=== PATIENT | female | born 1950 | race Caucasian/White ===

== ENCOUNTER 2017-03-02 11:03 | Outpatient (CLI) | payer MEDICARE, MEDICAID | END 2017-03-02 11:04 | disposition home or self-care (01) | DX: G47.33 Obstructive sleep apnea (adult) (pediatric) (principal) | CPT/HCPCS: 99214; G0463 ==

== ENCOUNTER 2017-03-26 08:00 | Outpatient (CLI) | payer MEDICARE, MEDICAID | END 2017-03-26 08:01 | disposition home or self-care (01) | DX: F43.10 Post-traumatic stress disorder, unspecified (principal); F41.9 Anxiety disorder, unspecified; I10 Essential (primary) hypertension; E78.5 Hyperlipidemia, unspecified; R73.01 Impaired fasting glucose ==

== ENCOUNTER 2017-04-28 10:45 | Outpatient (CLI) | payer MEDICARE, MEDICAID | END 2017-04-28 10:46 | disposition home or self-care (01) | LOC: SC 10:45 | PROVIDERS: ATTEND Nurse Practitioner Family | DX: G47.33 Obstructive sleep apnea (adult) (pediatric) (principal) | CPT/HCPCS: 99214; G0463; 99212 ==

== ENCOUNTER 2017-06-08 10:50 | Outpatient (CLI) | payer MEDICARE, MEDICAID | END 2017-06-08 10:51 | disposition home or self-care (01) | LOC: SC 10:50 | PROVIDERS: ATTEND Nurse Practitioner Family | DX: G47.33 Obstructive sleep apnea (adult) (pediatric) (principal) | CPT/HCPCS: 99214; G0463; 99212 ==

== ENCOUNTER 2017-08-30 13:42 | Outpatient (CLI) | payer MEDICARE, MEDICAID | END 2017-08-30 13:43 | disposition home or self-care (01) | LOC: SC 13:42 | PROVIDERS: ATTEND Nurse Practitioner Family | DX: G47.33 Obstructive sleep apnea (adult) (pediatric) (principal) | CPT/HCPCS: 99214; G0463; 99212 ==

== ENCOUNTER 2017-12-20 13:26 | Outpatient (CLI) | payer MEDICARE, MEDICAID | END 2017-12-20 13:27 | disposition home or self-care (01) | LOC: SC 13:26 | PROVIDERS: ATTEND Nurse Practitioner Family | DX: G47.33 Obstructive sleep apnea (adult) (pediatric) (principal) | CPT/HCPCS: 99214; G0463; 99212 ==

== ENCOUNTER 2018-02-15 13:04 | Outpatient (CLI) | payer MEDICARE, MEDICAID | END 2018-02-15 13:05 | disposition home or self-care (01) | LOC: SC 13:04 | PROVIDERS: ATTEND Nurse Practitioner Family | DX: G47.33 Obstructive sleep apnea (adult) (pediatric) (principal); G47.23 Circadian rhythm sleep disorder, irregular sleep wake type | CPT/HCPCS: 99214; G0463; 99212 ==

== ENCOUNTER 2018-03-18 19:06 | Emergency (ER) | payer MEDICARE, MEDICAID ==
--- NOTE | 2018-03-18 20:15 | ED Physician Documentation ---
PD HPI UPPER EXT INJURY - Stated complaint Stated Complaint: THUMB LAC - Chief complaint Chief Complaint: Ext Problem - History obtained from History obtained from: Patient - History of Present Illness Location: Left, Finger (thumb) Type of injury: Laceration (she dropped a kitchen knife and tried to catch it, with lac to thumb ensuing.) Timing - details: Abrupt onset Worsened by: Palpating Associated symptoms: No: Weakness, Numbness Contributing factors: No: Anticoagulated Similar symptoms before: Has not had sx before Recently seen: Not recently seen Review of Systems Neurologic: denies: Focal weakness, Numbness, Near syncope PD PAST MEDICAL HISTORY - Past Medical History Past Medical History: Yes Cardiovascular: Hypertension, High cholesterol - Past Surgical History Past Surgical History: Yes Ortho: Shoulder arthroplasty /[employer]: section - Present Medications Home Medications: Ambulatory Orders Medication Instructions Recorded Confirmed Ascorbic Acid [Vitamin C] 1 tab PO DAILY 03/18/18 03/18/18 Atorvastatin [Lipitor] 2 tab PO DAILY 03/18/18 03/18/18 Cholecalciferol [Vitamin D3] 1 tab PO DAILY 03/18/18 03/18/18 DULoxetine [Cymbalta] 1 tab PO DAILY 03/18/18 03/18/18 Gabapentin [Gralise] 0.5 tab PO BID 03/18/18 03/18/18 Magnesium Oxide [Magnesium] 1 tab PO DAILY 03/18/18 03/18/18 Metoprolol Succinate/Hctz 1 tab PO BID 03/18/18 03/18/18 [Metoprolol ER-Hctz 50-12.5 mg] Potassium Gluconate 1 tab PO DAILY 03/18/18 03/18/18 Vitamin A 1 tab PO DAILY 03/18/18 03/18/18 traZODone [Desyrel] 1 - 2 tab PO DAILY 03/18/18 03/18/18 - Allergies Allergies/Adverse Reactions: Allergies Allergy/AdvReac Type Severity Reaction Status Date / Time aspirin Allergy Unknown Verified 03/18/18 19:24 - Social History Does the pt smoke?: Yes Smoking Status: Current every day smoker - Immunizations Immunizations are current?: No Immunizations: TDAP >10years/unknown PD ED PE NORMAL - Vitals Vital signs reviewed: Yes - General General: Alert and oriented X 3, No acute distress, Well developed/nourished - Derm Derm: Normal color, Warm and dry - Extremities Extremities: Other (left thumb with flap lac that just catches side adge of nailbed, but not the growth area. Flap goes to fatty layer. It is at ulnar side distal phalanx on side. 1.5 cm without FB. ) Results - Vitals Vitals: Oxygen O2 Source Room air Procedures - Laceration (location) left thumb Length in cm: 1.5 (Done by DIRECTOR OF PARKS AND RECREATION student with direct supervision) Wound type: Flap, Into subcut fat, Clean Neurovascular status: Sensory intact, Motor intact Tendon involvement: Tendon intact Anesthesia: Lidocaine 1% Skin layer closure: Nylon, Interrupted, Size #-0 - enter number (4), Sutures - enter # (8) Other: Patient tolerated well, No complications, Neurovascular intact, Dressing applied, Tetanus UTD Complexity: Simple PD MEDICAL DECISION MAKING - ED course Complexity details: considered differential, d/w patient Departure - Departure Disposition: 01 Home, Self Care Clinical Impression: Laceration of left thumb Qualifiers: Encounter type: initial encounter Damage to nail status: with damage Foreign body presence: without foreign body Qualified Code(s): S61.112A - Laceration without foreign body of left thumb with damage to nail, initial encounter Condition: Stable Record reviewed to determine appropriate education?: Yes Instructions: ED Laceration Hand Follow-Up: Keturah Hebert ARNP [Primary Care Provider] - Comments: It is okay to wash and shower. Clean off the wound twice a day with soap and water, or peroxide and water. Apply some antibiotic ointment to it to keep it moist. Also to watch for signs of infection such as purulence, redness or increasing pain. Return to your primary care or the ER at the specified time for suture removal. Suture removal 8-10 days. Tylenol or ibuprofen if needed for pains. Discharge Date/Time: 03/18/18 21:22
[2018-03-18] MEDS ORDERED: LIDOCAINE 2% 10 ML MDV SUBQ STA (20:24)
[2018-03-18 20:33] VITALS: BP 104/55
== END 2018-03-18 21:22 | disposition home or self-care (01) ==
LOC: ED 19:06
DX: S61.012A Laceration without foreign body of left thumb without damage to nail, initial encounter (principal); W26.0XXA Contact with knife, initial encounter; I10 Essential (primary) hypertension; E78.00 Pure hypercholesterolemia, unspecified; F17.200 Nicotine dependence, unspecified, uncomplicated
CPT/HCPCS: 12001; 99282; 99283

== ENCOUNTER 2018-04-15 13:01 | Outpatient (CLI) | payer MEDICARE, MEDICAID ==
[2018-04-15 17:02] LABS: BASOPHILS # (AUTO) 0.1 10^3/uL (0.0-0.1); BASOPHILS % (AUTO) 1.1 %; EOSINOPHILS # (AUTO) 0.1 10^3/uL (0.0-0.7); EOSINOPHILS % (AUTO) 1.5 %; HGB - HEMOGLOBIN 14.2 g/dL (12.0-16.0); LYMPHOCYTES # (AUTO) 1.4 10^3/uL (1.5-3.5); LYMPHOCYTES % (AUTO) 25.8 %; MEAN CORPUSCULAR HEMOGLOBIN 29.1 pg (27.0-31.0); MEAN CORPUSCULAR HGB CONC 32.1 g/dL (32.0-36.0); MEAN CORPUSCULAR VOLUME 90.6 fL (81.0-99.0); MEAN PLATELET VOLUME 7.8 fL (7.9-10.8); MONOCYTES # (AUTO) 0.5 10^3/uL (0.0-1.0); MONOCYTES % (AUTO) 8.9 %; NEUTROPHILS # (AUTO) 3.5 10^3/uL (1.5-6.6); NEUTROPHILS % (AUTO) 62.7 %; PLT - PLATELET COUNT 300 10^3/uL (130-450); RED BLOOD COUNT 4.89 10^6/uL (4.20-5.40); RED CELL DISTRIBUTION WIDTH 14.1 % (12.0-15.0); WHITE BLOOD COUNT 5.6 x10^3/uL (4.8-10.8)
[2018-04-15 17:23] LABS: ALBUMIN 4.2 g/dL (3.2-5.5); ALBUMIN/GLOBULIN RATIO 1.4 (1.0-2.2); ALKALINE PHOSPHATASE 74 IU/L (42-121); ALT ALANINE AMINOTRANSFERASE 21 IU/L (10-60); AST ASPARTATE AMINOTRANSFERASE 21 IU/L (10-42); BILIRUBIN,TOTAL 0.7 mg/dL (0.2-1.0); BUN - BLOOD UREA NITROGEN 14 mg/dL (6-20); CALCIUM 9.3 mg/dL (8.5-10.3); CARBON DIOXIDE - CO2 29 mmol/L (21-32); CHLORIDE 103 mmol/L (101-111); CREATININE 0.8 mg/dL (0.4-1.0); GFR - MDRD 71 (>89); GLUCOSE 115 mg/dL (70-100); SODIUM 140 mmol/L (135-145); TOTAL PROTEIN 7.2 g/dL (6.7-8.2)
== END 2018-04-15 13:02 | disposition home or self-care (01) ==
LOC: LAB.F 13:01
PROVIDERS: ATTEND Nurse Practitioner Family
DX: R53.83 Other fatigue (principal)
CPT/HCPCS: 36415; 80053; 84443; 85025

== ENCOUNTER 2018-05-18 13:10 | Outpatient (CLI) | payer MEDICARE, MEDICAID | END 2018-05-18 13:11 | disposition home or self-care (01) | LOC: SC 13:10 | PROVIDERS: ATTEND Nurse Practitioner Family | DX: G47.33 Obstructive sleep apnea (adult) (pediatric) (principal) | CPT/HCPCS: 99214; G0463; 99212 ==

== ENCOUNTER 2018-06-10 08:04 | Outpatient (CLI) | payer MEDICARE, MEDICAID ==
[2018-06-10 10:46] LABS: ALBUMIN 3.9 g/dL (3.2-5.5); ALBUMIN/GLOBULIN RATIO 1.2 (1.0-2.2); ALKALINE PHOSPHATASE 72 IU/L (42-121); ALT ALANINE AMINOTRANSFERASE 18 IU/L (10-60); AST ASPARTATE AMINOTRANSFERASE 17 IU/L (10-42); BILIRUBIN,TOTAL 0.7 mg/dL (0.2-1.0); BUN - BLOOD UREA NITROGEN 14 mg/dL (6-20); CALCIUM 9.2 mg/dL (8.5-10.3); CARBON DIOXIDE - CO2 30 mmol/L (21-32); CHLORIDE 102 mmol/L (101-111); CHOL/HDL RATIO 3.6 (<4.4); CHOLESTEROL 193 mg/dL; CREATININE 0.8 mg/dL (0.4-1.0); GFR - MDRD 71 (>89); GLUCOSE 92 mg/dL (70-100); HDL CHOLESTEROL 54 mg/dL; LDL CHOLESTEROL,CALCULATED 113 mg/dL; LDL/HDL RATIO 2.1 (<4.4); SODIUM 138 mmol/L (135-145); TOTAL PROTEIN 7.1 g/dL (6.7-8.2); VLDL CHOLESTEROL 26 mg/dL
[2018-06-10 10:51] LABS: BASOPHILS # (AUTO) 0.1 10^3/uL (0.0-0.1); BASOPHILS % (AUTO) 0.9 %; EOSINOPHILS # (AUTO) 0.2 10^3/uL (0.0-0.7); HGB - HEMOGLOBIN 14.1 g/dL (12.0-16.0); LYMPHOCYTES # (AUTO) 2.1 10^3/uL (1.5-3.5); LYMPHOCYTES % (AUTO) 36.3 %; MEAN CORPUSCULAR HEMOGLOBIN 30.1 pg (27.0-31.0); MEAN CORPUSCULAR HGB CONC 32.4 g/dL (32.0-36.0); MEAN CORPUSCULAR VOLUME 92.7 fL (81.0-99.0); MEAN PLATELET VOLUME 8.2 fL (7.9-10.8); MONOCYTES # (AUTO) 0.6 10^3/uL (0.0-1.0); MONOCYTES % (AUTO) 10.6 %; NEUTROPHILS # (AUTO) 2.8 10^3/uL (1.5-6.6); NEUTROPHILS % (AUTO) 49.2 %; PLT - PLATELET COUNT 302 10^3/uL (130-450); RED BLOOD COUNT 4.69 10^6/uL (4.20-5.40); RED CELL DISTRIBUTION WIDTH 14.3 % (12.0-15.0); WHITE BLOOD COUNT 5.8 x10^3/uL (4.8-10.8)
== END 2018-06-10 08:05 | disposition home or self-care (01) ==
LOC: LAB.F 08:04
PROVIDERS: ATTEND Nurse Practitioner Family
DX: I10 Essential (primary) hypertension (principal); E78.5 Hyperlipidemia, unspecified
CPT/HCPCS: 36415; 80053; 80061; 83721; 84443; 85025

== ENCOUNTER 2020-12-23 08:58 | Outpatient (CLI) | payer MEDICARE, MEDICAID ==
[2020-12-23 15:16] LABS: BASOPHILS # (AUTO) 0.1 10^3/uL (0.0-0.1); EOSINOPHILS # (AUTO) 0.1 10^3/uL (0.0-0.7); EOSINOPHILS % (AUTO) 2.8 %; HGB - HEMOGLOBIN 14.5 g/dL (12.0-16.0); LYMPHOCYTES # (AUTO) 1.7 10^3/uL (1.5-3.5); LYMPHOCYTES % (AUTO) 33.6 %; MEAN CORPUSCULAR HEMOGLOBIN 29.3 pg (27.0-31.0); MEAN CORPUSCULAR HGB CONC 30.8 g/dL (32.0-36.0); MEAN CORPUSCULAR VOLUME 95.2 fL (81.0-99.0); MEAN PLATELET VOLUME 9.5 fL (7.9-10.8); MONOCYTES # (AUTO) 0.4 10^3/uL (0.0-1.0); MONOCYTES % (AUTO) 8.4 %; NEUTROPHILS # (AUTO) 2.7 10^3/uL (1.5-6.6); NEUTROPHILS % (AUTO) 53.8 %; PLT - PLATELET COUNT 357 10^3/uL (130-450); RED BLOOD COUNT 4.95 10^6/uL (4.20-5.40); RED CELL DISTRIBUTION WIDTH 13.2 % (12.0-15.0); WHITE BLOOD COUNT 5.1 x10^3/uL (4.8-10.8)
[2020-12-23 15:48] LABS: ALBUMIN 4.3 g/dL (3.2-5.5); ALBUMIN/GLOBULIN RATIO 1.5 (1.0-2.2); ALKALINE PHOSPHATASE 80 IU/L (42-121); ALT ALANINE AMINOTRANSFERASE 20 IU/L (10-60); AST ASPARTATE AMINOTRANSFERASE 18 IU/L (10-42); BILIRUBIN,TOTAL 0.6 mg/dL (0.2-1.0); BUN - BLOOD UREA NITROGEN 19 mg/dL (6-20); CALCIUM 9.7 mg/dL (8.5-10.3); CARBON DIOXIDE - CO2 27 mmol/L (21-32); CHLORIDE 108 mmol/L (101-111); CHOL/HDL RATIO 4.5 (<4.4); CHOLESTEROL 230 mg/dL; CREATININE 0.8 mg/dL (0.4-1.0); GLUCOSE 94 mg/dL (70-100); HDL CHOLESTEROL 51 mg/dL; LDL CHOLESTEROL,CALCULATED 145 mg/dL; LDL/HDL RATIO 2.8 (<4.4); TOTAL PROTEIN 7.2 g/dL (6.7-8.2); VLDL CHOLESTEROL 34 mg/dL
== END 2020-12-23 08:59 | disposition home or self-care (01) ==
LOC: LAB.S 08:58
PROVIDERS: ATTEND Internal Medicine
DX: I10 Essential (primary) hypertension (principal); E78.5 Hyperlipidemia, unspecified
CPT/HCPCS: 36415; 80053; 80061; 83721; 85025

== ENCOUNTER 2021-07-16 08:32 | Outpatient (CLI) | payer MEDICARE, MEDICAID ==
[2021-07-16 15:15] LABS: ALBUMIN 4.1 g/dL (3.2-5.5); ALBUMIN/GLOBULIN RATIO 1.4 (1.0-2.2); ALKALINE PHOSPHATASE 83 IU/L (42-121); ALT ALANINE AMINOTRANSFERASE 16 IU/L (10-60); AST ASPARTATE AMINOTRANSFERASE 15 IU/L (10-42); BILIRUBIN,TOTAL 0.7 mg/dL (0.2-1.0); BUN - BLOOD UREA NITROGEN 15 mg/dL (6-20); CALCIUM 9.4 mg/dL (8.5-10.3); CARBON DIOXIDE - CO2 29 mmol/L (21-32); CHLORIDE 102 mmol/L (101-111); CHOL/HDL RATIO 7.1 (<4.4); CHOLESTEROL 389 mg/dL; CREATININE 0.7 mg/dL (0.4-1.0); GFR - MDRD 82 (>89); GLUCOSE 93 mg/dL (70-100); HDL CHOLESTEROL 55 mg/dL; LDL CHOLESTEROL,CALCULATED 274 mg/dL; SODIUM 141 mmol/L (135-145); TOTAL PROTEIN 7.1 g/dL (6.7-8.2); TRIGLYCERIDES 299 mg/dL; VLDL CHOLESTEROL 60 mg/dL
== END 2021-07-16 08:33 | disposition home or self-care (01) ==
LOC: LAB.S 08:32
PROVIDERS: ATTEND Internal Medicine
DX: I10 Essential (primary) hypertension (principal); E78.5 Hyperlipidemia, unspecified
CPT/HCPCS: 36415; 80053; 80061; 83721

== ENCOUNTER 2022-01-16 08:54 | Outpatient (CLI) | payer MEDICARE, MEDICAID ==
[2022-01-16 15:26] LABS: BASOPHILS # (AUTO) 0.1 10^3/uL (0.0-0.1); BASOPHILS % (AUTO) 1.1 %; EOSINOPHILS # (AUTO) 0.2 10^3/uL (0.0-0.7); EOSINOPHILS % (AUTO) 2.4 %; HGB - HEMOGLOBIN 15.3 g/dL (12.0-16.0); LYMPHOCYTES # (AUTO) 2.3 10^3/uL (1.5-3.5); LYMPHOCYTES % (AUTO) 37.1 %; MEAN CORPUSCULAR HEMOGLOBIN 29.5 pg (27.0-31.0); MEAN CORPUSCULAR HGB CONC 31.2 g/dL (32.0-36.0); MEAN CORPUSCULAR VOLUME 94.6 fL (81.0-99.0); MEAN PLATELET VOLUME 9.7 fL (7.9-10.8); MONOCYTES # (AUTO) 0.5 10^3/uL (0.0-1.0); MONOCYTES % (AUTO) 8.4 %; NEUTROPHILS # (AUTO) 3.2 10^3/uL (1.5-6.6); NEUTROPHILS % (AUTO) 50.7 %; PLT - PLATELET COUNT 349 10^3/uL (130-450); RED BLOOD COUNT 5.18 10^6/uL (4.20-5.40); RED CELL DISTRIBUTION WIDTH 12.9 % (12.0-15.0); WHITE BLOOD COUNT 6.3 x10^3/uL (4.8-10.8)
[2022-01-16 16:17] LABS: ALBUMIN 4.4 g/dL (3.2-5.5); ALBUMIN/GLOBULIN RATIO 1.5 (1.0-2.2); ALKALINE PHOSPHATASE 69 IU/L (42-121); ALT ALANINE AMINOTRANSFERASE 20 IU/L (10-60); AST ASPARTATE AMINOTRANSFERASE 16 IU/L (10-42); BILIRUBIN,TOTAL 0.8 mg/dL (0.2-1.0); BUN - BLOOD UREA NITROGEN 17 mg/dL (6-20); CALCIUM 9.3 mg/dL (8.5-10.3); CARBON DIOXIDE - CO2 28 mmol/L (21-32); CHLORIDE 103 mmol/L (101-111); CHOL/HDL RATIO 3.2 (<4.4); CHOLESTEROL 179 mg/dL; CREATININE 0.7 mg/dL (0.4-1.0); GFR - MDRD 82 (>89); GLUCOSE 89 mg/dL (70-100); HDL CHOLESTEROL 56 mg/dL; LDL CHOLESTEROL,CALCULATED 92 mg/dL; LDL/HDL RATIO 1.6 (<4.4); POTASSIUM 3.7 mmol/L (3.5-5.0); SODIUM 141 mmol/L (135-145); TOTAL PROTEIN 7.4 g/dL (6.7-8.2); TRIGLYCERIDES 154 mg/dL; VLDL CHOLESTEROL 31 mg/dL
== END 2022-01-16 08:55 | disposition home or self-care (01) ==
LOC: LAB.S 08:54
PROVIDERS: ATTEND Internal Medicine
DX: I10 Essential (primary) hypertension (principal); E78.5 Hyperlipidemia, unspecified
CPT/HCPCS: 36415; 80053; 80061; 83721; 85025

== ENCOUNTER 2022-09-08 18:20 | Outpatient (CLI) | payer MEDICARE, MEDICAID ==
--- NOTE | 2022-09-08 14:45 | XRAY Report ---
PROCEDURE: Chest 2 View X-Ray INDICATIONS: PRODUCTIVE COUGH TECHNIQUE: 2 view(s) of the chest. COMPARISON: None. FINDINGS: Surgical changes and devices: None. Lungs and pleura: No pleural effusions or pneumothorax. Lungs are clear. Mediastinum: Mediastinal contours are normal. Heart size is borderline enlarged. Bones and chest wall: No suspicious bony abnormalities. Soft tissues appear unremarkable. IMPRESSION: Borderline cardiomegaly. No acute finding. Reviewed by: Emil Tate MD on 09/08/2022 2:43 PM PDT Approved by: Emil Tate MD on 09/08/2022 2:43 PM PDT Station ID: [id number]
== END 2022-09-08 18:21 | disposition home or self-care (01) ==
LOC: DI.S 18:20
PROVIDERS: ATTEND Physician Assistant Medical
DX: R05.8 Other specified cough (principal); I51.7 Cardiomegaly

== ENCOUNTER 2022-12-02 09:08 | Outpatient (CLI) | payer MEDICARE, MEDICAID ==
[2022-12-02 15:06] LABS: BASOPHILS # (AUTO) 0.1 10^3/uL (0.0-0.1); BASOPHILS % (AUTO) 1.1 %; EOSINOPHILS # (AUTO) 0.2 10^3/uL (0.0-0.7); EOSINOPHILS % (AUTO) 4.1 %; HCT - HEMATOCRIT 49.3 % (37.0-47.0); HGB - HEMOGLOBIN 15.1 g/dL (12.0-16.0); LYMPHOCYTES % (AUTO) 35.7 %; MEAN CORPUSCULAR HEMOGLOBIN 28.8 pg (27.0-31.0); MEAN CORPUSCULAR HGB CONC 30.6 g/dL (32.0-36.0); MEAN CORPUSCULAR VOLUME 94.1 fL (81.0-99.0); MEAN PLATELET VOLUME 10.1 fL (7.9-10.8); MONOCYTES # (AUTO) 0.5 10^3/uL (0.0-1.0); MONOCYTES % (AUTO) 9.1 %; NEUTROPHILS # (AUTO) 2.8 10^3/uL (1.5-6.6); NEUTROPHILS % (AUTO) 49.8 %; PLT - PLATELET COUNT 331 10^3/uL (130-450); RED BLOOD COUNT 5.24 10^6/uL (4.20-5.40); RED CELL DISTRIBUTION WIDTH 13.2 % (12.0-15.0); WHITE BLOOD COUNT 5.6 x10^3/uL (4.8-10.8)
[2022-12-02 15:30] LABS: ALBUMIN 4.3 g/dL (3.2-5.5); ALBUMIN/GLOBULIN RATIO 1.5 (1.0-2.2); ALKALINE PHOSPHATASE 81 IU/L (42-121); ALT ALANINE AMINOTRANSFERASE 24 IU/L (10-60); AST ASPARTATE AMINOTRANSFERASE 19 IU/L (10-42); BILIRUBIN,TOTAL 0.8 mg/dL (0.2-1.0); BUN - BLOOD UREA NITROGEN 14 mg/dL (6-20); CALCIUM 9.1 mg/dL (8.5-10.3); CARBON DIOXIDE - CO2 26 mmol/L (21-32); CHLORIDE 101 mmol/L (101-111); CHOLESTEROL 170 mg/dL; CREATININE 0.7 mg/dL (0.4-1.0); GFR - MDRD 82 (>89); GLUCOSE 86 mg/dL (70-100); HDL CHOLESTEROL 56 mg/dL; LDL CHOLESTEROL,CALCULATED 96 mg/dL; LDL/HDL RATIO 1.7 (<4.4); POTASSIUM 4.1 mmol/L (3.5-5.0); SODIUM 137 mmol/L (135-145); TOTAL PROTEIN 7.1 g/dL (6.7-8.2); TRIGLYCERIDES 90 mg/dL; VLDL CHOLESTEROL 18 mg/dL
[2022-12-02 16:03] LABS: THYROID STIMULATING HORMONE 1.51 uIU/mL (0.34-5.60)
== END 2022-12-02 09:09 | disposition home or self-care (01) ==
LOC: LAB.S 09:08
PROVIDERS: ATTEND Registered Nurse
DX: E78.5 Hyperlipidemia, unspecified (principal); Z79.899 Other long term (current) drug therapy; Z13.29 Encounter for screening for other suspected endocrine disorder
CPT/HCPCS: 36415; 80053; 80061; 83721; 84443; 85025

== ENCOUNTER 2022-12-11 09:32 | Outpatient (CLI) | payer MEDICARE, MEDICAID ==
[2022-12-11 15:37] LABS: BASOPHILS % (AUTO) 0.8 %; EOSINOPHILS # (AUTO) 0.2 10^3/uL (0.0-0.7); EOSINOPHILS % (AUTO) 3.2 %; HCT - HEMATOCRIT 40.4 % (37.0-47.0); HGB - HEMOGLOBIN 12.5 g/dL (12.0-16.0); LYMPHOCYTES # (AUTO) 1.9 10^3/uL (1.5-3.5); LYMPHOCYTES % (AUTO) 38.9 %; MEAN CORPUSCULAR HEMOGLOBIN 29.2 pg (27.0-31.0); MEAN CORPUSCULAR HGB CONC 30.9 g/dL (32.0-36.0); MEAN CORPUSCULAR VOLUME 94.4 fL (81.0-99.0); MEAN PLATELET VOLUME 9.9 fL (7.9-10.8); MONOCYTES # (AUTO) 0.5 10^3/uL (0.0-1.0); MONOCYTES % (AUTO) 9.5 %; NEUTROPHILS # (AUTO) 2.3 10^3/uL (1.5-6.6); NEUTROPHILS % (AUTO) 47.4 %; PLT - PLATELET COUNT 287 10^3/uL (130-450); RED BLOOD COUNT 4.28 10^6/uL (4.20-5.40); WHITE BLOOD COUNT 4.8 x10^3/uL (4.8-10.8)
[2022-12-11 15:57] LABS: ALBUMIN 3.8 g/dL (3.2-5.5); ALBUMIN/GLOBULIN RATIO 1.4 (1.0-2.2); ALKALINE PHOSPHATASE 74 IU/L (42-121); ALT ALANINE AMINOTRANSFERASE 19 IU/L (10-60); AST ASPARTATE AMINOTRANSFERASE 16 IU/L (10-42); BILIRUBIN,TOTAL 0.6 mg/dL (0.2-1.0); BUN - BLOOD UREA NITROGEN 14 mg/dL (6-20); CALCIUM 9.2 mg/dL (8.5-10.3); CARBON DIOXIDE - CO2 30 mmol/L (21-32); CHLORIDE 104 mmol/L (101-111); CHOL/HDL RATIO 2.5 (<4.4); CHOLESTEROL 130 mg/dL; CREATININE 0.7 mg/dL (0.4-1.0); GFR - MDRD 82 (>89); GLUCOSE 86 mg/dL (70-100); HDL CHOLESTEROL 51 mg/dL; LDL CHOLESTEROL,CALCULATED 60 mg/dL; LDL/HDL RATIO 1.2 (<4.4); POTASSIUM 4.1 mmol/L (3.5-5.0); SODIUM 143 mmol/L (135-145); TOTAL PROTEIN 6.5 g/dL (6.7-8.2); TRIGLYCERIDES 94 mg/dL; VLDL CHOLESTEROL 19 mg/dL
[2022-12-11 16:07] LABS: THYROID STIMULATING HORMONE 1.44 uIU/mL (0.34-5.60)
== END 2022-12-11 09:33 | disposition home or self-care (01) ==
LOC: LAB.S 09:32
PROVIDERS: ATTEND Registered Nurse
DX: D75.1 Secondary polycythemia (principal); Z79.899 Other long term (current) drug therapy; E78.5 Hyperlipidemia, unspecified; Z13.29 Encounter for screening for other suspected endocrine disorder
CPT/HCPCS: 36415; 80053; 80061; 82668; 83721; 84443; 85025

== ENCOUNTER 2023-01-18 09:27 | Outpatient (CLI) | payer MEDICARE, MEDICAID ==
[2023-01-18 15:30] VITALS: BP 102/64
--- NOTE | 2023-01-18 15:30 | SLEEP CARE CONSULTATION ---
Information from patient questionnaire entered by Aileen Lipscomb. I have reviewed and concur with the information entered by Aileen Lipscomb. This document represents the service I personally performed and the decisions made by me, Victor Manuel Benitez MD, [facility]. History of Present Illness Service Date and Time: 01/18/2023926 Reason for Visit: New patient Chief Complaint: reports: Other (UPDATE SUPPLIES MACHINE ISSUES) Date of Onset: 4YRS Usual bedtime: 11PM Time it takes to fall asleep: 20MIN Snores at night: Yes Observed to quit breathing while asleep: Yes Sleeps alone due to snoring: No Number of times waking at night: 0 Reasons for waking at night: reports: Other (FAVE MASK COMES OFF ) Toss, Turn, or Twitch while sleeping: Yes Recalls having dreams: Yes Usually gets out of bed at: 7AM Feels refreshed in the morning: No Morning headache: Yes (REASOLVES AROUND 10AM) Sleepy or fatigued during the day: Yes Ever fallen asleep while driving: No Takes day naps: Yes Dreams during day naps: No Prior sleep studies: Yes ([facility]) Additional HPI information: I had the pleasure of seeing Ms. Tobin today regarding obstructive sleep apnea- hypopnea. As you know, she is a 72-year-old lady who was diagnosed with the sleep-disordered breathing at over a decade ago at [facility] in [place], [place]. She had a manual CPAP/BiPAP titration study here 9 years ago. In 2016, she was prescribed a CPAP device set at 8 12 cmH2O. She has not returned for a follow up until now. She said the Joshua Respironics DreamStation autoCPAP broke in September of last year because she pulled on the hose while asleep and it dropped to the floor. She went without a CPAP for 2 months. A month ago, she was given a ResMed AirSense 10 by a friend. The de vice is set at 5 cmH2O. She uses it every night and all night. The compliance data show usage in 29 out of the past 30 nights, averaging 8.3 hours a night. The residual AHI is 4.2 and average air leak is 19,2 L/minute. She wears a ResMed F20 full face mask. She still receiving supplies but does not know what company they come from. According to our last chart note, [employer] was her durable medical supplier. - Parasomnia Symptoms Ever been unable to move upon waking from sleep: Yes Talks in sleep: Yes Ever acted out dreams in sleep: Yes Ever felt weak in the knees when startled or emotional: Yes Bothered by creepy, crawly, restless sensations in legs: No Problems with memory or concentration: Yes Subjective Initial [place] Sleepiness Scale score: 8 (01/18/23) Past Medical History Past Medical History: reports: Arthritis, Fibromyalgia, Anxiety, Asthma, Depression, Other (NIGHT TERRORS) Social History The patient's occupation is a RETIRED. Patient is Single and lives in [place]. Have you smoked in the past 12 months: No Alcohol use: Yes Alcohol amount and frequency: 2 GLASSES 2XWEEK Caffeine use: No Family History Family history of sleep disordered breathing: Yes Family Hx Sleep Apnea: Mother: Snoring, Father: Snoring, Sibling: Snoring, Sleep apnea - Treated Allergies and Home Medications Known drug allergies: Yes (ASPIRIN) Drug allergies reviewed: Yes Home medication list reviewed: Yes Allergy and home medication list: Allergies aspirin Allergy (Verified 03/18/18 19:24) Unknown ear rining Review of Systems Cardiovascular: denies: high blood pressure, palpitations, chest pain, irregular heart rate or pulse, leg or foot swelling, have to sleep sitting up, other Respiratory: reports: shortness of breath, wheeze Gastrointestinal: denies: heartburn, difficulty swallowing, nausea, vomitting, diarrhea, abdominal pain, other Urinary: denies: incontinence, frequency, urgency, impotence, other Neurological: reports: headaches Psychiatric: reports: anxiety, depression Ear/Nose/Throat: reports: nasal congestion, sinus problems, dry mouth/throat, wisdom teeth removed Musculoskeletal: reports: joint pain, neck pain, back pain, joint swelling, muscle pain or cramping, mobility problems Immunologic: denies: sneezing, rash, itching, allergies to food or environment, other Physical Exam Vital signs obtained and entered by: AILEEN Hancock MA Blood Pressure: 102/64 (LEFT ARM) Cuff size: regular Heart Rate: 92 O2 Saturation: 97 Height: 5 ft 1 in Weight: 169 lb 12.8 oz Body Mass Index: 32.1 BMI Classification: Obese Neck circumference: 16.5 Mood/affect: normal HEENT: No craniofacial malformation Nostrils: patent to airflow Turbinates: normal Septum: midline Mouth and throat: narrow oropharynx Soft palate: long Hard palate: normal Uvula: normal Uvula visualization: 50% Mallampati Class II Tongue: normal in size Tonsils: small Chin and jaw: normal size and position Neck: normal w/o lymphadenopathy or thyromegaly Heart: regular rate and rhythm Lungs: clear bilaterally Extremities: no edema or clubbing Neurologic: intact Impression and Plan IMPRESSION: 1. Obstructive Sleep Apnea-Hypopnea Syndrome, as previously diagnosed. The severity is unknown. The patient is back using a friend CPAP regularly. The current pressure setting appears effective and comfortable. Her broken Joshua Respironics DreamStation autoCPAP is not older than its useful lif e of 5 years. However, in order to prescribe her a new one, we will need a diagnostic sleep study to show that she has obstructive sleep apnea-hypopnea. Plan: 1. Schedule an in-laboratory polysomnography. 2. Return for follow up after the sleep study. I will prescribe her all new equipment at that time. Follow up with Sleep Care in: 1-2 months Visit Type: In Office Time Spent with Patient (minutes): 15 Provider Statement: I spent 100% of the Face to Face Visit with the patient with greater than 50% spent counseling the patient and coordination of care.
== END 2023-01-18 09:28 | disposition home or self-care (01) ==
LOC: SC 09:27
PROVIDERS: ATTEND Internal Medicine Pulmonary Disease
DX: G47.33 Obstructive sleep apnea (adult) (pediatric) (principal); E66.9 Obesity, unspecified; Z68.32 Body mass index [BMI] 32.0-32.9, adult
CPT/HCPCS: 99202; G0463; 99212

== ENCOUNTER 2023-02-07 19:54 | Outpatient (CLI) | payer MEDICARE, MEDICAID | END 2023-02-07 19:55 | disposition home or self-care (01) | LOC: SC 19:54 | PROVIDERS: ATTEND Internal Medicine Pulmonary Disease | DX: G47.33 Obstructive sleep apnea (adult) (pediatric) (principal); G47.61 Periodic limb movement disorder | CPT/HCPCS: 95810 ==

== ENCOUNTER 2023-03-01 13:45 | Outpatient (CLI) | payer MEDICARE, MEDICAID ==
--- NOTE | 2023-03-01 18:06 | SLEEP CARE CONSULTATION ---
Information from patient questionnaire entered by Aileen Lipscomb. I have reviewed and concur with the information entered by Aileen Lipscomb. This document represents the service I personally performed and the decisions made by me, Victor Manuel Benitez MD, [facility]. History of Present Illness Service Date and Time: 03/01/2023 1345 Initial [place] Sleepiness Scale score: 8 (01/18/23) Current [place] Sleepiness Scale score: 4 (03/01/23) Additional HPI information: Ms. Tobin returned for follow up of the sleep study she had on 02/07/2023. The polysomnography showed that the patient had reduced sleep efficiency due to dial refinisher awakening. The sleep architecture was abnormal for sleep fragmentation and reduced amount of time spent in REM sleep. Respiratory monitoring showed mild obstructive sleep apnea-hypopnea (AHI = 13.8) associated with frequent arousals, oxyhemoglobin desaturation and mild hypoxia (yoli oxygen saturation of 85%). The respiratory events occurred almost exclusively during supine sleep (supine AHI = 26.8; non-supine = 1.46). Snore was light to moderate in intensity. There was mild periodic leg movement of sleep not contributing to the sleep fragmentation. Cardiac rhythm was normal sinus rhythm without significant arrhythmia. No abnormal behavior (parasomnia) observed during the night. The patient was informed of these findings. I explained to her the path ophysiology behind obstructive sleep apnea. We then spent quite a bit of time discussing different treatment options. For mild obstructive sleep apnea, surgery and oral appliance are alternatives to nasal CPAP therapy but in moderate or severe cases, nasal CPAP is the most effective and reliable treatment. After some discussion, she opted to continue with the CPAP therapy. Her old machine was set at 8 12 cmH2O. Sleep Study - Results Type of Sleep Study: Polysomnography (COMPLETED 02/15/23) Prior sleep studies: Yes ([facility]) Allergies and Home Medications Drug allergies reviewed: Yes Home medication list reviewed: Yes Allergy and home medication list: Allergies aspirin Allergy (Verified 03/18/18 19:24) Unknown ear rining Review of Systems Review of systems same as previous: Yes Physical Exam Vital signs obtained and entered by: AILEEN Hancock MA Blood Pressure: 126/70 (LEFT ARM) Cuff size: regular Heart Rate: 73 O2 Saturation: 96 Height: 5 ft 1 in Weight: 171 lb 6.4 oz Body Mass Index: 32.3 BMI Classification: Obese Impression and Plan IMPRESSION: 1. Obstructive Sleep Apnea-Hypopnea Syndrome, mild, associated with mild hypoxemia and sleep fragmentation. Presently, the patient is using a friends ResMed AirSense 10 because her Joshua Respironics DreamStation autoCPAP broke last year. I will prescribe her a new autoCPAP and set it at 8 12 cmH2O. PLAN: 1. Prescription made for an autoCPAP, heated humidifier, and related supplies. 2. Attempt to lose weight. 3. Return for follow up after one month of using the CPAP. Prescriptions: Auto CPAP Follow up with Sleep Care in: 1-2 months Visit Type: In Office Time Spent with Patient (minutes): 15 Provider Statement: I spent 100% of the Face to Face Visit with the patient with greater than 50% spent counseling the patient and coordination of care.
[2023-03-01 18:08] VITALS: BP 126/70
== END 2023-03-01 13:46 | disposition home or self-care (01) ==
LOC: SC 13:45
PROVIDERS: ATTEND Internal Medicine Pulmonary Disease
DX: G47.33 Obstructive sleep apnea (adult) (pediatric) (principal); E66.9 Obesity, unspecified; Z68.32 Body mass index [BMI] 32.0-32.9, adult
CPT/HCPCS: 99212; G0463

== ENCOUNTER 2023-05-26 14:13 | Outpatient (CLI) | payer MEDICARE, MEDICAID ==
--- NOTE | 2023-05-26 15:36 | SLEEP CARE CONSULTATION ---
Information from patient questionnaire entered by Aileen Lipscomb. I have reviewed and concur with the information entered by Aileen Lipscomb. This document represents the service I personally performed and the decisions made by , Perla Bender ARNP. History of Present Illness Service Date and Time: 05/26/2023 1413 Previous diagnosis: Mild, Obstructive Sleep Apnea-Hypopnea Syndrome AHI: 13.8 (in 01/2023) Reason for follow up: first compliance, first compliance after device update Equipment type: CPAP (RESMED) Equipment obtained from: [employer] (getting supplies) Mask style: Full face Mask brand: Respironics Backup mask available: Yes (other mask) Prior sleep studies: Yes ([facility]) Type of Sleep Study: Polysomnography (COMPLETED 02/15/23) HPI additional information: ZAC NAVA was diagnosed to have mild, AHI 13.8, obstructive sleep apnea- hypopnea syndrome and returned today for CPAP therapy first compliance follow- up. Sleep Study - Results Type of Sleep Study: Polysomnography (COMPLETED 02/15/23) Prior sleep studies: Yes ([facility]) CPAP Compliance Data - Data Reviewed with Patient Average duration of nightly device use: 5 hours 52 minutes Compliance rate %: 67 Current pressure setting (cmH2O): 8-12 (avg 11.5) Average residual AHI: 3.1 Central apnea: 0 Obstructive apnea: 1.7 Hypopnea: 0.6 Average large leak: 9.9 L/min Subjective Patient concerns: reports: mask discomfort, air blowing in eyes, mask leak noise, condensation in mask/hose. denies: aerophagia, nasal congestion, dry mouth, nose, throat, epistaxis Observed to snore while using device: No Current pressure setting perceived as: too low On therapy, patient: reports: sleeping better, awakening more refreshed, being more awake and alert during the day, more rested overall. denies: drowsiness while driving Initial [place] Sleepiness Scale score: 8 (01/18/23) Current [place] Sleepiness Scale score: 7 (05/26/23) Allergies and Home Medications Known drug allergies: Yes (aspirin) Drug allergies reviewed: Yes Home medication list reviewed: Yes (no changes) Allergy and home medication list: Allergies aspirin Allergy (Verified 05/25/23 15:09) Unknown ear ringing Review of Systems Review of systems same as previous: Yes (no changes) Physical Exam Vital signs obtained and entered by: AILEEN Hancock MA Blood Pressure: 126/72 (LEFT ARM) Cuff size: regular Heart Rate: 74 O2 Saturation: 96 Height: 5 ft 1 in Weight: 174 lb Body Mass Index: 32.8 BMI Classification: Obese Impression and Plan 1. Obstructive Sleep Apnea-Hypopnea Syndrome, mild, with fair treatment compliance and good apnea control. On CPAP therapy, the patient has better sleep quality and is more rested overall. Patient has been very frustrated because she did not get the mask she thought she was going to get and the tubing for her machine does not go on well with her mask. I was able to find an extra SlimLine tubing to put on her ResMed machine that worked fine. I also fit her to a [employer]ick DreamWear fullface, size medium cushion, that she had wanted to try because the hose is on the top of her head. She states [employer] told her that she was not eligible for more supplies so she was unable to get the new headgear. Patient also concerned that the pressure is too low when she first turns on her machine. I increased her ramp starting pressure to 6 cm H2O for patient comfort. She also would like her pressure increased for comfort and I adjusted her pressure to 10-14 cm H2O, her residual AHI is 3.1. Patient is to let me know if the pressure change is uncomfortable. I will have her follow-up in a month to see how she is doing with the changes. Patient's apnea severity and rationale for treatment to reduce apnea, improve sleep quality and reduce cardiovascular and cerebrovascular events was reviewed. I also reviewed the benefit of consistent device use of CPAP for fibromyalgia, depression and anxiety. 2. Obesity, unspecified. Currently patients BMI is 32.8. Obesity increases the risk of apnea, CPAP pressure requirements and overall health risks especially cardiovascular and diabetes. Thus patient is advised to lose weight. * Change auto CPAP pressure to 10-14 cmH2O * Fit to [employer]ick Dreamwear full face mask, size medium cushion * Notify me if snoring with mask or feeling that the pressure is too much or too little * Attempt to lose weight * Call this office if any problems using CPAP * Return for follow up in 1-2 months, or sooner if concerns arise Counseling Topics: Spare mask, Weight loss health impact Visit Type: In Office Time Spent with Patient (minutes): 28 Provider Statement: I spent 100% of the Face to Face Visit with the patient with greater than 50% spent counseling the patient and coordination of care.
[2023-05-26 15:41] VITALS: BP 126/72
== END 2023-05-26 14:14 | disposition home or self-care (01) ==
LOC: SC 14:13
PROVIDERS: ATTEND Nurse Practitioner Family
DX: G47.33 Obstructive sleep apnea (adult) (pediatric) (principal); E66.9 Obesity, unspecified; Z68.32 Body mass index [BMI] 32.0-32.9, adult
CPT/HCPCS: 99213; G0463; 99212

== ENCOUNTER 2023-06-29 08:00 | Outpatient (CLI) | payer MEDICARE, MEDICAID ==
--- NOTE | 2023-06-29 18:11 | XRAY Report ---
PROCEDURE: Shoulder 3 View RT INDICATIONS: RIGHT SHOULDER STRAIN TECHNIQUE: 3 views of the shoulder were acquired. COMPARISON: None. FINDINGS: Bones: No fractures or dislocations. No suspicious bony lesions. Visualized ribs appear intact. Mild-moderate AC joint hypertrophy. Mild glenohumeral joint degenerative changes also present. Soft tissues: No suspicious soft tissue calcifications. IMPRESSION: No acute bony abnormality. If pain persists with conservative management, consider repeat radiographs in 10-14 days or cross-sectional imaging. Reviewed by: Kermit Upton MD on 06/29/2023 6:09 PM PDT Approved by: Kermit Upton MD on 06/29/2023 6:09 PM PDT Station ID: [id number]
--- NOTE | 2023-06-29 18:12 | XRAY Report ---
PROCEDURE: Knee 3 View RT INDICATIONS: PAIN IN RIGHT KNEE TECHNIQUE: 3 views of the right knee(s) were acquired. COMPARISON: None. FINDINGS: Bones: No fractures or dislocations. No suspicious bony lesions. Mild tricompartmental degenerati ve changes of the knee. Soft tissues: No knee joint effusion. No suspicious soft tissue calcifications . IMPRESSION: No acute bony abnormality. If there remains a high clinical concern for fracture, consider cross-sect ional imaging now. If pain persists, consider repeat x-ray in 10-14 days or cross-sectional imaging. Reviewed by: Kermit Upton MD on 06/29/2023 6:10 PM PDT Approved by: Kermit Upton MD on 06/29/2023 6:10 PM PDT Station ID: [id number]
== END 2023-06-29 23:59 | disposition home or self-care (01) ==
LOC: DI.S 08:00
PROVIDERS: ATTEND Physician Assistant
DX: S46.011A Strain of muscle(s) and tendon(s) of the rotator cuff of right shoulder, initial encounter (principal); M25.561 Pain in right knee

== ENCOUNTER 2023-06-29 13:26 | Outpatient (CLI) | payer MEDICARE, MEDICAID ==
--- NOTE | 2023-06-29 14:28 | Sleep Patient Instructions ---
Sleep Center Visit Summary - Patient Visit Information Reason for Visit: One Month followup for PAP therapy - Patient Instructions Additional Instructions: You were here for follow up of CPAP therapy. You will be continued on CPAP therapy with pressure at 12-15 cmH2O. Please let us know if the pressure change is uncomfortable and we can make further adjustments of the pressure. You should follow up with sleep care in 12 months. You may contact us sooner for any questions or concerns. - Clinic Information Contact: [facility] [address] [place] [id number] [email or web address] T: [phone]
--- NOTE | 2023-06-29 14:32 | SLEEP CARE CONSULTATION ---
Information from patient questionnaire entered by Aileen Lipscomb. I have reviewed and concur with the information entered by Aileen Lipscomb. This document represents the service I personally performed and the decisions made by , Perla Bender ARNP. History of Present Illness Service Date and Time: 06/29/2023 1326 Previous diagnosis: Mild, Obstructive Sleep Apnea-Hypopnea Syndrome AHI: 13.8 (in 01/2023) Reason for follow up: one month (F/U) Equipment type: CPAP (RESMED Airsense 11, 02/2023) Equipment obtained from: [employer] (getting supplies) Mask style: Full face Mask brand: Respironics (Dreamwear) Backup mask available: No (will keep old mask when replaced) Prior sleep studies: Yes ([facility]) Type of Sleep Study: Polysomnography (COMPLETED 02/15/23) HPI additional information: ZAC NAVA was diagnosed to have mild, AHI 13.8, obstructive sleep apnea- hypopnea syndrome and returned today for CPAP therapy one month follow-up. Sleep Study - Results Type of Sleep Study: Polysomnography (COMPLETED 02/15/23) Prior sleep studies: Yes ([facility]) CPAP Compliance Data - Data Reviewed with Patient Average duration of nightly device use: 6 HRS 50 MINS Compliance rate %: 87 (05/25/23-06/23/23) Current pressure setting (cmH2O): 10-14 (avg 13.2, max 13.7) Average residual AHI: 2.1 Central apnea: 0.1 Obstructive apnea: 0.4 Hypopnea: 0.5 Average large leak: 26.9 L/min Subjective Patient concerns: reports: aerophagia, air blowing in eyes, dry mouth, nose, throat (only if it comes off face/leaking). denies: mask discomfort, mask leak noise, condensation in mask/hose, nasal congestion, epistaxis Observed to snore while using device: No Current pressure setting perceived as: too low On therapy, patient: reports: sleeping better, awakening more refreshed, being more awake and alert during the day, more rested overall. denies: drowsiness while driving Initial [place] Sleepiness Scale score: 8 (01/18/23) Current [place] Sleepiness Scale score: 5 Allergies and Home Medications Known drug allergies: Yes (aspirin) Drug allergies reviewed: Yes Home medication list reviewed: Yes (no changes) Allergy and home medication list: Allergies aspirin Allergy (Verified 06/28/23 09:17) Unknown ear ringing Review of Systems Review of systems same as previous: No (fell out of bed, hurt shoulder, knee on right side - due to night terrors) Physical Exam Vital signs obtained and entered by: Perla Craft NP Blood Pressure: 106/68 Cuff size: wrist (right) Heart Rate: 78 O2 Saturation: 99 Height: 5 ft 1 in Weight: 171 lb 12.8 oz Body Mass Index: 32.4 BMI Classification: Obese Impression and Plan 1. Obstructive Sleep Apnea-Hypopnea Syndrome, mild, with good treatment compliance and good apnea control. On CPAP therapy, the patient has better sleep quality and is more rested overall. Patient has questions about her night terrors. 3 weeks ago she fell out of bed due to night terrors and injured her right shoulder and right knee. She states she has had these night terrors for many years. She states she has tried everything for them including medication and therapy with no improvement. She asks if there is anything else she can try. I encouraged her to try 5 mg melatonin nightly as well as chamomile tea prior to bedtime to help calm the mind and reduce night terrors. She voiced understanding . Patient's apnea severity and rationale for treatment to reduce apnea, improve sleep quality and reduce cardiovascular and cerebrovascular events was reviewed. I also reviewed the benefit of consistent device use of CPAP for depression/anxiety and fibromyalgia. 2. Obesity, unspecified. Currently patients BMI is 32.4. Obesity increases the risk of apnea, CPAP pressure requirements and overall health risks especially cardiovascular and diabetes. Thus patient is advised to lose weight. * Continue auto CPAP pressure at 10-14 cmH2O * Notify me if snoring with mask or feeling that the pressure is too much or too little * Attempt to lose weight * Call this office if any problems using CPAP * Return for follow up in 1 year, or sooner if concerns arise Counseling Topics: Spare mask, Weight loss health impact Visit Type: In Office Time Spent with Patient (minutes): 26 Provider Statement: I spent 100% of the Face to Face Visit with the patient with greater than 50% spent counseling the patient and coordination of care.
[2023-06-29 14:33] VITALS: BP 106/68
== END 2023-06-29 13:27 | disposition home or self-care (01) ==
LOC: SC 13:26
PROVIDERS: ATTEND Nurse Practitioner Family
DX: G47.33 Obstructive sleep apnea (adult) (pediatric) (principal); E66.9 Obesity, unspecified; Z68.32 Body mass index [BMI] 32.0-32.9, adult; S46.011A Strain of muscle(s) and tendon(s) of the rotator cuff of right shoulder, initial encounter; M25.561 Pain in right knee
CPT/HCPCS: 73030; 73562; 99213; G0463; 99212

== ENCOUNTER 2023-07-05 15:24 | Outpatient (CLI) | payer MEDICARE, MEDICAID ==
--- NOTE | 2023-07-06 15:32 | MRI Report ---
PROCEDURE: SHOULDER WO - RT INDICATIONS: STRAIN OF SHOULDER TECHNIQUE: Noncontrast oblique coronal T2 fast spin echo with fat saturation, oblique sagittal T1 spin echo and T2 fast spin echo with fat saturation, axial T1 spin echo and T2 fast spin echo with fat saturation t hrough the shoulder. COMPARISON: Radiograph 07/18/2023 FINDINGS: Image quality: Motion degraded Rotator cuff Bulk: Minimal fatty atrophy of infraspinatus and supraspinatus. Teres minor: Intact Supraspinatus: High-grade bursal surface tearing at the footplate. There is also tendinosis and artic ular surface partial tear more proximally. Infraspinatus: Suspected tendinosis and interstitial partial tears. Subscapularis: Tendinosis and interstitial tears. Bones and bursae GH joint: Moderate degenerative changes. There is focal edema of the glenoid in the posterior inferio r aspect. AC joint: Moderate to severe degenerative changes, with capsular edema. Humeral head: Intact Scapula and acromion: Otherwise intact. Bursa: Mild to moderate bursitis under the acromion. Capsule Labrum: Not well seen, circumferentially attenuated, likely chronic degenerative changes. Long head biceps tendon: Tendinosis and small intra-articular portion. IGHL: Intact Rotator interval: Fat signal is preserved Soft tissues: No axillary adenopathy. Lungs are not well seen. IMPRESSION: Moderate glenohumeral and moderate to severe acromioclavicular degenerative changes. Suspected focal contusion of the posterior inferior glenoid. No discrete fracture line. Likely chronic tendinosis and partial tearing of the rotator cuff and long head biceps tendon. Likely chronic degenerative changes labrum. Reviewed by: Harpal Sarah MD on 07/06/2023 3:31 PM PDT Approved by: Harpal Sarah MD on 07/06/2023 3:31 PM PDT Station ID: [id number]
== END 2023-07-05 15:25 | disposition home or self-care (01) ==
LOC: DI 15:24
PROVIDERS: ATTEND Physician Assistant
DX: M19.011 Primary osteoarthritis, right shoulder (principal)

== ENCOUNTER 2023-09-29 16:05 | Emergency (ER) | payer MEDICARE, MEDICAID ==
--- NOTE | 2023-09-29 19:16 | Ultrasound Report ---
PROCEDURE: Duplex Ext Veins Right INDICATIONS: calf swelling s/p surgery TECHNIQUE: Real-time imaging, as well as color and pulse Doppler interrogation, were performed of the lower extr emity deep veins from the inguinal ligament to the popliteal fossa. Attempted visualization of the ca lf veins was performed. COMPARISON: None. FINDINGS: The deep veins are normally compressible, and free of intraluminal thrombus. Color and pu lse Doppler demonstrate normal phasic intraluminal flow. There is normal augmentation response to di stal compression maneuver. IMPRESSION: No deep venous thrombosis of the visualized lower extremity. Reviewed by: Mattie Hobbs MD on 09/29/2023 7:15 PM PDT Approved by: Mattie Hobbs MD on 09/29/2023 7:15 PM PDT Station ID: [id number]
--- NOTE | 2023-09-29 19:24 | ED Physician Documentation ---
History of Present Illness - Stated complaint Stated Complaint: RT LEG PX - Chief complaint Chief Complaint: Ext Problem - History obtained from History obtained from: Patient - History of Present Illness Timing: Today Pain level max: 6 Pain level now: 6 - Additonal information Additional information: Patient is a 73-year-old female who presents with swelling and pain to the right calf. She is 3 weeks status post a bunionectomy. Saw her mine expert who sent her here for DVT rule out. No redness. Does have some pain. Walked more than usual yesterday. Started today. No numbness or tingling. No erythema. Review of Systems Constitutional: denies: Fever, Chills GI: denies: Vomiting Skin: denies: Rash Musculoskeletal: denies: Neck pain, Back pain Neurologic: denies: Headache PD PAST MEDICAL HISTORY - Past Medical History Past Medical History: Yes Cardiovascular: Hypertension, High cholesterol - Past Surgical History Past Surgical History: Yes Ortho: Shoulder arthroplasty /PROCUREMENT BUYER: section - Present Medications Home Medications: Ambulatory Orders Medication Instructions Recorded Confirmed Ascorbic Acid [Vitamin C] 1 tab PO DAILY 03/18/18 05/26/23 Atorvastatin [Lipitor] 2 tab PO DAILY 03/18/18 05/26/23 Cholecalciferol [Vitamin D3] 1 tab PO DAILY 03/18/18 05/26/23 DULoxetine [Cymbalta] 1 tab PO DAILY 03/18/18 05/26/23 Gabapentin [Gralise] 0.5 tab PO BID 03/18/18 05/26/23 Magnesium Oxide [Magnesium] 1 tab PO DAILY 03/18/18 05/26/23 Metoprolol Barraza/Hydrochlorothiaz 1 tab PO BID 03/18/18 05/26/23 [Metoprolol ER-Hctz 50-12.5 mg] Potassium Gluconate 1 tab PO DAILY 03/18/18 05/26/23 Vitamin A 1 tab PO DAILY 03/18/18 05/26/23 traZODone [Desyrel] 1 - 2 tab PO DAILY 03/18/18 05/26/23 - Allergies Allergies/Adverse Reactions: Allergies Allergy/AdvReac Type Severity Reaction Status Date / Time aspirin Allergy Unknown Verified 09/29/23 16:33 - Social History Does the pt smoke?: Yes Smoking Status: Current every day smoker Does the pt drink ETOH?: No Does the pt have substance abuse?: No - Immunizations Immunizations are current?: No Immunizations: TDAP >10years/unknown PD ED PE NORMAL - Vitals Vital signs reviewed: Yes - General General: Alert and oriented X 3, No acute distress - HEENT HEENT: Moist mucous membranes - Neck Neck: Supple, no meningeal sign - Cardiac Cardiac: RRR, Strong equal pulses - Respiratory Respiratory: No respiratory distress, Clear bilaterally - Abdomen Abdomen: Soft, Non tender, Non distended - Derm Derm: Warm and dry - Extremities Extremities: Other (RLE - Edema and calf tenderness to the right lower extremity. Neurovascular intact. No erythema. No drainage. No deformity. Otherwise normal examination of the right lower extremity) - Neuro Neuro: Alert and oriented X 3 - Psych Psych: Normal mood, Normal affect Results - Vitals Vitals: Vital Signs - 24 hr 09/29/23 09/29/23 16:26 19:27 Temperature 36.8 C Heart Rate 92 86 Respiratory 17 18 Rate Blood Pressure 137/57 H 165/77 H O2 Saturation 94 96 Oxygen O2 Source Room air - Rads (name of study) Duplex ultrasound right lower extremity Relevant Findings:: Final report received, See rad report PD Medical Decision Making - ED course Complexity details: reviewed results, re-evaluated patient, considered differential, d/w patient ED course: 73-year-old female with calf pain and swelling. Likely related to her increased activity recently after surgery. Recommend ice, compression and elevation. No acute findings on ultrasound. No evidence of infection. No redness. No warmth. No crepitus. Patient counseled regarding signs and symptoms for which I believe and urgent re-evaluation would be necessary. Patient with good understanding of and agreement to plan and is comfortable going home at this time This document was made in part using voice recognition software. While efforts are made to proofread this document, sound alike and grammatical errors may occur. Departure - Departure Disposition: 01 Home, Self Care Clinical Impression: Peripheral edema Condition: Good Instructions: ED Leg Swelling Unilateral Follow-Up: your,doctor as scheduled [Other] Comments: There is no evidence of blood clot in your calf or leg. Please elevate the area whenever possible, this should improve over the next few days. You can use ice and compression such as an Silvestre bandage as well. You can use Tylenol for pain. Please return if you worsen. PROCEDURE: Duplex Ext Veins Right INDICATIONS: calf swelling s/p surgery TECHNIQUE: Real-time imaging, as well as color and pulse Doppler interrogation, were performed of the lower extremity deep veins from the inguinal ligament to the popliteal fossa. Attempted visualization of the calf veins was performed. COMPARISON: None. FINDINGS: The deep veins are normally compressible, and free of intraluminal thrombus. Color and pulse Doppler demonstrate normal phasic intraluminal flow. There is normal augmentation response to distal compression maneuver. IMPRESSION: No deep venous thrombosis of the visualized lower extremity. Forms: PCP List Discharge Date/Time: 09/29/23 19:34
[2023-09-29 19:30] VITALS: BP 165/77; O2SAT 96
== END 2023-09-29 19:34 | disposition home or self-care (01) ==
LOC: ED 16:05
DX: R60.9 Edema, unspecified (principal); I10 Essential (primary) hypertension; E78.00 Pure hypercholesterolemia, unspecified; F17.200 Nicotine dependence, unspecified, uncomplicated; Z79.899 Other long term (current) drug therapy
CPT/HCPCS: 99283; 99284

== ENCOUNTER 2023-10-05 08:00 | Outpatient (CLI) | payer MEDICARE, MEDICAID ==
--- NOTE | 2023-10-05 12:52 | XRAY Report ---
PROCEDURE: Shoulder 3 View RT INDICATIONS: RIGHT SHOULDER PAIN TECHNIQUE: 4 views of the shoulder were acquired. COMPARISON: None FINDINGS: Bones: No fractures or dislocations. No suspicious bony lesions. Visualized ribs appear intact. M ild supraclavicular joint hypertrophy. Old healed right-sided rib fractures Soft tissues: No suspicious soft tissue calcifications. IMPRESSION: Mild AC joint degenerative changes Reviewed by: Kishor Casper MD on 10/05/2023 11:51 AM [facility] Approved by: Kishor Casper MD on 10/05/2023 11:51 AM [facility] Station ID: [id number]
== END 2023-10-05 23:59 | disposition home or self-care (01) ==
LOC: DI.WOS 08:00
PROVIDERS: ATTEND Orthopaedic Surgery
DX: M19.011 Primary osteoarthritis, right shoulder (principal)

== ENCOUNTER 2024-05-29 08:46 | Outpatient (CLI) | payer MEDICARE, MEDICAID ==
[2024-05-29 15:50] LABS: CHOL/HDL RATIO 2.8 (<4.4); CHOLESTEROL 186 mg/dL; HDL CHOLESTEROL 67 mg/dL; LDL CHOLESTEROL,CALCULATED 97 mg/dL; LDL/HDL RATIO 1.4 (<4.4); TRIGLYCERIDES 112 mg/dL (48-352); VLDL CHOLESTEROL 22 mg/dL
== END 2024-05-29 08:47 | disposition home or self-care (01) ==
LOC: LAB.S 08:46
PROVIDERS: ATTEND Registered Nurse
DX: E78.5 Hyperlipidemia, unspecified (principal)
CPT/HCPCS: 36415; 80061; 83721

== ENCOUNTER 2024-06-02 13:54 | Outpatient (CLI) | payer MEDICARE, MEDICAID ==
[2024-06-02 19:56] LABS: BASOPHILS % (AUTO) 0.7 %; EOSINOPHILS # (AUTO) 0.1 10^3/uL (0.0-0.7); HGB - HEMOGLOBIN 12.9 g/dL (12.0-16.0); LYMPHOCYTES # (AUTO) 1.7 10^3/uL (1.5-3.5); LYMPHOCYTES % (AUTO) 28.9 %; MEAN CORPUSCULAR HEMOGLOBIN 28.3 pg (27.0-31.0); MEAN CORPUSCULAR VOLUME 94.3 fL (81.0-99.0); MEAN PLATELET VOLUME 9.7 fL (7.9-10.8); MONOCYTES # (AUTO) 0.6 10^3/uL (0.0-1.0); MONOCYTES % (AUTO) 9.6 %; NEUTROPHILS # (AUTO) 3.5 10^3/uL (1.5-6.6); NEUTROPHILS % (AUTO) 58.6 %; PLT - PLATELET COUNT 317 10^3/uL (130-450); RED BLOOD COUNT 4.56 10^6/uL (4.20-5.40); RED CELL DISTRIBUTION WIDTH 13.2 % (12.0-15.0)
== END 2024-06-02 13:55 | disposition home or self-care (01) ==
LOC: LAB.S 13:54
PROVIDERS: ATTEND Registered Nurse
DX: R07.89 Other chest pain (principal)
CPT/HCPCS: 36415; 85025; 86140